=== PATIENT | male | born 1970 | race Caucasian/White ===

== ENCOUNTER 2022-08-08 12:12 | Emergency (ER) | payer OTHER, SELFPAY ==
--- NOTE | ~2022-08-08 | US_ITS ---
EXAMINATION: US venous doppler LE RT DATE: 08/08/2022 13:37 INDICATION: Right lower limb swelling TECHNIQUE: Fong scale images without and with compression and Doppler images of the right lower extre mity veins were obtained. COMPARISON: None FINDINGS: The right common femoral vein, profunda femoral vein, femoral vein, popliteal vein, peronea l trunk, posterior tibial veins, and greater saphenous vein are patent. Areas of soft tissue swelling are seen without focal abscess. IMPRESSION: 1. Patent right lower extremity veins. No evidence of deep venous thrombosis. Reviewed, dictated and finalized at location A.
[2022-08-08 12:19] VITALS: BP 160/88; PULSE 87; RESP 16; TEMP 36.4; O2SAT 97
--- NOTE | 2022-08-08 13:04 | ED.EXTPRO ---
HPI - Extremity Problem General Chief complaint: Extremity Problem,Nontraumatic Stated complaint: right leg pain/redness Time Seen by Provider: 08/08/22 12:41 History of Present Illness HPI Narrative: Patient is a 51-year-old male presenting with right leg pain and redness. Patient states that he is currently renovating a house. States that about a week ago he removed a large amount of spider webs and spider eggs. States that the next day he noticed a large red nodule on his right wrist. Several days later he developed another nodule on his right thigh. And then several days later he developed an area of erythema and tenderness on his right calf. States that he is concerned that he was bitten by a spider or some other insect. States that he noticed 2 small puncture wounds in the area on his right calf. States that the pain is worsened when he stands on it. States that currently the only pain he has is the area on his calf. He denies fevers or chills, headaches, numbness or weakness, chest pain, shortness of breath, abdominal pain, nausea or vomiting, diarrhea, dysuria. Related Data Allergies Allergy/AdvReac Type Severity Reaction Status Date / Time No Known Allergies Allergy Verified 08/08/22 12:13 Review of Systems Review of Systems: All systems reviewed & are unremarkable except as noted in HPI and below Exam Narrative: GENERAL: Well-appearing, well-nourished, and in no acute distress. HEAD: Normocephalic, atraumatic. EYES: PERRLA and EOMI. ENT: Nares clear, no rhinorrhea or epistaxis. Mucous membranes moist. NECK: Supple. CHEST: Clear to auscultation. No respiratory distress. HEART: Regular rate and rhythm. No murmur heard. Normal peripheral pulses. ABDOMEN: Soft, nontender, nondistended, normal active bowel sounds. EXTREMITIES: Normal range of motion. area of warm erythema on medial right calf, indurated, no fluctuance or crepitus; leg compartments are soft, pedal pulses 2+ SKIN: Warm, dry, no rash. one erythematous nodule on R wrist, one similar nodule on medial R thigh; neither are tender or fluctuant NEURO: No focal deficits. Alert and oriented x3. PSYCH: Normal mood and affect. Course Vital Signs Vital signs: Vital Signs Temperature 97.5 F L 04/16/23 12:19 Pulse Rate 87 08/08/22 12:19 Respiratory Rate 16 08/08/22 12:19 Blood Pressure 160/88 H 08/08/22 12:19 Pulse Oximetry 97 08/08/22 12:19 Oxygen Delivery Room Air 08/08/22 12:19 Temperature 97.5 F L 08/08/22 12:19 Pulse Rate 87 08/08/22 12:19 Respiratory Rate 16 08/08/22 12:19 Blood Pressure 160/88 H 08/08/22 12:19 Pulse Oximetry 97 08/08/22 12:19 Oxygen Delivery Room Air 08/08/22 12:19 MDM - Extremity (Nontraumatic) MDM Narrative Medical decision making narrative: Patient is a 51-year-old male presenting with right leg redness and pain. Patient is hypertensive, but his vitals are within normal limits. He is afebrile. His right calf appears to have a cellulitic process developing. His compartments are soft and there is no evidence of crepitus or fluctuance. Pedal pulses are 2+. He also has these 2 nodules one on his right wrist 1 on his right thigh. Neither are tender or fluctuant. Neither have evidence of surrounding cellulitis. Doppler of the right lower extremity reveals no DVT. There is evidence of soft tissue infection without evidence of abscess. Blood work with leukocytosis. No other significant abnormalities. Discussed with the patient that I am concerned for possible bacteremia with the scattered nodules. Patient is a difficult stick and an IV was unable to be placed. I discussed with the patient that I feel it would be safer to admit him for blood cultures and IV antibiotics and possibly an echo. Patient states that he has a remote history of IV drug use but he has not used in years. Patient states that he does not want to be admitted at this time as he has things to take care of at home. After a
[2022-08-08 13:48] LABS: Basophils Absolute Auto 0.1 K/mm3 (0.0-0.1); Basophils Percent Auto 0.5 % (0.2-1.2); Eosinophils Absolute Auto 0.1 K/mm3 (0-0.3); Eosinophils Percent Auto 0.9 % (0-4.4); Hematocrit 46.8 % (42.0-52.0); Hemoglobin 15.7 g/dL (14.0-18.0); Immature Granulocyte Absolute 0.04 K/mm3 (0.00-0.031); Immature Granulocyte Percent A 0.3 % (0-0.5); Immature Platelet Fraction Pct 3.4 % (0.9-11.2); Lymphocytes Absolute Auto 2.06 K/mm3 (0.9-3.2); Lymphocytes Percent Auto 16.2 % (18.3-44.2); Mean Corpuscular HGB Conc 33.5 g/dl (32-36); Mean Corpuscular Hemoglobin 31.6 pg (26-34); Mean Corpuscular Volume 94.2 fl (80-100); Mean Platelet Volume 10.1 fl (7.4-10.4); Monocytes Absolute Auto 0.8 K/mm3 (0.1-0.6); Monocytes Percent Auto 6.1 % (2.6-8.5); Neutrophils Absolute Auto 9.6 K/mm3 (1.3-6.7); Platelet Count Result 263 k/mm3 (150-375); Red Blood Count 4.97 M/mm3 (4.6-6.20); Red Cell Distribution Width 12.4 % (11.5-14.5); White Blood Count 12.7 K/mm3 (4.5-10.0)
--- NOTE | 2022-08-08 13:49 | PC.NURSE ---
Unable to obtain IV access after multiple sticks. Pt admits to 30 year hx of IV drug use.
[2022-08-08 15:06] LABS: Alanine Aminotransferase 35 U/L (6-50); Albumin Level 3.9 g/dL (3.5-5.1); Alkaline Phosphatase 84 U/L (38-126); Anion Gap 6 mmol/L (8-16); Aspartate Amino Transferase 34 U/L (17-59); Bilirubin,Total 1.5 mg/dL (0.2-1.3); Blood Urea Nitrogen 11 mg/dL (9-20); Calcium 8.4 mg/dL (8.4-10.2); Carbon Dioxide 29 mmol/L (22-30); Chloride 98 mmol/L (98-107); Estimated CRCL calculation 119 ml/min; Estimated Glomerular Filt Rate > 60; Glucose 132 mg/dL (65-110); Potassium 3.7 mmol/L (3.4-5.0); Sodium 133 mmol/L (137-145)
[2022-08-08] MEDS: CEPHALEXIN 500 MG CAPSULE PO (16:18)
[2022-08-08] MEDS: DOXYCYCLINE HYCLATE 100 MG TABLET PO (16:18)
== END 2022-08-08 16:42 | disposition home or self-care (01) ==
PROVIDERS: Emergency Provider Emergency Medicine; PCP Family Medicine
DX: L03.115 Cellulitis of right lower limb (principal); R22.31 Localized swelling, mass and lump, right upper limb
CPT/HCPCS: 36415; 80053; 85025; 85055; 93971; 99284; A9270